=== PATIENT | male | born 1950 | race Caucasian/White ===

== ENCOUNTER 2016-04-14 | Outpatient (CLI) | END 2016-04-14 22:42 | disposition critical access hospital (66) | CPT/HCPCS: A0425; A0427 ==

== ENCOUNTER 2016-04-14 23:08 | Emergency (ER) | payer OTHER | END 2016-04-15 04:57 | disposition home or self-care (01) | DX: R07.9 Chest pain, unspecified (principal); I10 Essential (primary) hypertension; E78.00 Pure hypercholesterolemia, unspecified; G47.30 Sleep apnea, unspecified; K21.9 Gastro-esophageal reflux disease without esophagitis; M19.90 Unspecified osteoarthritis, unspecified site; Z86.73 Personal history of transient ischemic attack (TIA), and cerebral infarction without residual deficits; Z86.010 Personal history of colon polyps ==

== ENCOUNTER 2016-09-25 12:14 | Emergency (ER) | payer MEDICARE, OTHER ==
[2016-09-25 12:38] VITALS: BP 138/89
--- NOTE | 2016-09-25 13:04 | XRAY Preliminary Report ---
Exam: XR Ankle 3 View LT IMPRESSION: 1. No osseous abnormality. 2. Medial ankle soft tissue swelling. [facility] SITE ID: [id number]
--- NOTE | 2016-09-25 13:06 | XRAY Report ---
EXAM: LEFT ANKLE RADIOGRAPHY EXAM DATE: 09/25/2016 12:53 PM. CLINICAL HISTORY: Injury. Struck medial malleolus on shower frame. COMPARISON: None. TECHNIQUE: 3 views. FINDINGS: Bones: Normal. No fractures or bone lesions. Joints: Normal. No effusion. No subluxations. The ankle mortise is normally aligned. Soft Tissues: Medial soft tissue swelling. IMPRESSION: 1. No osseous abnormality. 2. Medial ankle soft tissue swelling. [facility] Referring Provider Line: [phone] SITE ID: [id number]
--- NOTE | 2016-09-25 13:42 | ED Physician Documentation ---
PD HPI LOWER EXT INJURY - Stated complaint Stated Complaint: LT ANKLE INJURY - Chief complaint Chief Complaint: Ext Problem - History obtained from History obtained from: Patient - History of Present Illness PD HPI LOW EXT INJURY LOCATION: Left, Ankle Type of injury: Blunt / blow Where injury occurred: Home Timing - onset: How many hours ago (3) Timing - details: Still present Worsened by: Moving, Palpating, Other (weightbearing) Similar symptoms before: Has not had sx before - Additional information Additional information: The patient is a 66-year-old male who presents with left ankle injury. He slipped while getting out of the shower, and banged his left ankle firmly against the side of the shower rim. He presents now with swelling of his ankle , with pain, especially with weightbearing. The incident occurred about 3 hours prior to arrival. He denies any other injuries. Tetanus status booster is over due. Review of Systems Constitutional: denies: Fever Nose: denies: Congestion Cardiac: denies: Chest pain / pressure Respiratory: denies: Dyspnea GI: denies: Nausea, Vomiting Skin: reports: Abrasion (s). denies: Rash Musculoskeletal: reports: Extremity pain (left ankle). denies: Neck pain, Back pain Neurologic: denies: Focal weakness, Numbness, Headache, Head injury PD PAST MEDICAL HISTORY - Past Medical History Past Medical History: Yes Cardiovascular: Hypertension, High cholesterol Respiratory: Sleep apnea, CPAP use, Other Neuro: CVA Endocrine/Autoimmune: None GI: GERD, Colon polyps : Retention HEENT: None Psych: None Musculoskeletal: Osteoarthritis Derm: Other - Past Surgical History Past Surgical History: Yes General: Cholecystectomy, Appendectomy, Colonoscopy, Other HEENT: Tonsil/Adenoidectomy - Present Medications Home Medications: Ambulatory Orders Medication Instructions Recorded Confirmed Clopidogrel [Plavix] 75 mg PO ONCE 07/23/13 04/14/16 Lisinopril [Zestril] 40 mg PO DAILY 07/23/13 04/14/16 Simvastatin 20 mg PO QPM 07/23/13 04/14/16 Ascorbic Acid [Vitamin C] 1,000 mg PO DAILY 07/26/14 04/14/16 Carvedilol 6.25 mg PO BID 07/26/14 04/14/16 Cholecalciferol (Vitamin D3) 2,000 unit PO DAILY 07/26/14 04/14/16 [Vitamin D] HYDROcod/ACETAM 5/325 [Vicodin 1 each PO ONCE PRN 07/31/14 04/14/16 5/325] Hydrochlorothiazide 25 mg PO DAILY 04/14/16 04/14/16 oxyCODONE/ACET 5/325 [Percocet 5 1 - 2 tab PO Q4-6H PRN #20 tablet 09/25/16 mg/325 mg] - Allergies Allergies/Adverse Reactions: Allergies Allergy/AdvReac Type Severity Reaction Status Date / Time codeine Allergy Severe vomiting Verified 09/25/16 13:13 morphine Allergy Severe anaphylaxis Verified 09/25/16 13:13 - Social History Does the pt smoke?: No Smoking Status: Never smoker Does the pt drink ETOH?: Yes ETOH Use: Beer, Liquor Does the pt have substance abuse?: No - Immunizations Immunizations are current?: Yes - POLST Patient has POLST: No POLST Status: Full Code PD ED PE NORMAL - Vitals Vital signs reviewed: Yes (borderline hypertension initially) - General General: Alert and oriented X 3, Well developed/nourished - HEENT HEENT: Atraumatic - Neck Neck: No bony TTP - Respiratory Respiratory: No respiratory distress - Back Back: No spinal TTP - Derm Derm: No rash - Extremities Extremities: No edema, No calf tenderness / cord, Other (There is swelling over the medial malleolus of the left ankle, with associated superficial 0.5 cm laceration, that has well apposed wound edges. There is no tenderness to palpation at the posterior aspect of the medial malleolus, the lateral malleolus , the fifth metatarsal base, or the proximal fibula. Distal neurovascular is intact.) - Neuro Neuro: Alert and oriented X 3, No motor deficit, No sensory deficit, Normal speech Results - Vitals Vitals: Oxygen O2 Source Room air - Rads (name of study) Left ankle Radiology: Prelim report reviewed, EMP read contemporaneously, See rad report ( No osseous abnormality. Medial ankle soft tissue swelling.) PD MEDICAL DECISION MAKING - ED course Complexity details: reviewed results, re-evaluated patient, considered differential, d/w patient, d/w family ED course: The patient's presentation is significant for contusion to the left ankle, with left ankle sprain, and superficial laceration that did not warrant suturing. X- ray of the left ankle reveals soft tissue swelling, without bony abnormality. Treatment in the emergency department included cleaning of the wound and application of antibiotic and wound dressing. Tetanus booster was administered. A 4 inch compression wrap was applied, and crutches were dispensed. I discussed with the patient and his the expected course of healing, symptomatic treatment and outpatient follow-up, as well as potentially worrisome signs or symptoms that should prompt reevaluation in the emergency department. He is being discharged with a prescription for Percocet, 15 tablets. Departure - Departure Disposition: 01 Home, Self Care Clinical Impression: Right ankle sprain Qualifiers: Encounter type: initial encounter Involved ligament of ankle: unspecified ligament Qualified Code(s): S93.401A - Sprain of unspecified ligament of right ankle, initial encounter Condition: Stable Instructions: ED Sprain Ankle W X Ray Prescriptions: oxyCODONE/ACET 5/325 [Percocet 5 mg/325 mg] 1 - 2 tab PO Q4-6H PRN #20 tablet PRN Reason: Pain Comments: Keep your left leg elevated as much the time as possible. Apply icepack intermittently for the next 3 days. Let pain be your guide to activity level. Follow up with primary physician, or return to the emergency department, if you develop any sign of infection, or otherwise worsening symptoms. Discharge Date/Time: 09/25/16 14:17
[2016-09-25] MEDS ORDERED: TETANUS/DIPHTHERIA/PERTUSSIS 0.5 ML SYRINGE IM ONE (13:47)
[2016-09-25] MEDS: TETANUS/DIPHTHERIA/PERTUSSIS 0.5 ML SYRINGE IM ONE (13:51)
== END 2016-09-25 14:17 | disposition home or self-care (01) ==
LOC: ED 12:14
DX: S93.402A Sprain of unspecified ligament of left ankle, initial encounter (principal); W18.2XXA Fall in (into) shower or empty bathtub, initial encounter; Y93.E1 Activity, personal bathing and showering; Y92.012 Bathroom of single-family (private) house as the place of occurrence of the external cause; Z23 Encounter for immunization; I10 Essential (primary) hypertension; E78.00 Pure hypercholesterolemia, unspecified; G47.30 Sleep apnea, unspecified; Z86.73 Personal history of transient ischemic attack (TIA), and cerebral infarction without residual deficits; Z86.010 Personal history of colon polyps; K21.9 Gastro-esophageal reflux disease without esophagitis; M19.90 Unspecified osteoarthritis, unspecified site
CPT/HCPCS: 90471; 99283

== ENCOUNTER 2016-12-24 08:23 | Outpatient (CLI) | payer MEDICARE, OTHER ==
[2016-12-24 11:43] LABS: BUN - BLOOD UREA NITROGEN 12 mg/dL (6-20); CALCIUM 9.3 mg/dL (8.5-10.3); CARBON DIOXIDE - CO2 31 mmol/L (21-32); CHLORIDE 105 mmol/L (101-111); CHOLESTEROL 92 mg/dL; CREATININE 0.9 mg/dL (0.6-1.2); GFR - MDRD 84 (>89); GLUCOSE 111 mg/dL (70-100); HDL CHOLESTEROL 47 mg/dL; POTASSIUM 3.7 mmol/L (3.5-5.0); SODIUM 141 mmol/L (135-145)
[2016-12-24 13:05] LABS: LDL/HDL RATIO 0.6 (<3.6); TRIGLYCERIDES 96 mg/dL; VLDL CHOLESTEROL 19 mg/dL
== END 2016-12-24 08:24 | disposition home or self-care (01) ==
LOC: LAB.F 08:23
PROVIDERS: ATTEND Internal Medicine
DX: L98.9 Disorder of the skin and subcutaneous tissue, unspecified (principal); E78.5 Hyperlipidemia, unspecified; I10 Essential (primary) hypertension; G45.9 Transient cerebral ischemic attack, unspecified
CPT/HCPCS: 36415; 80048; 80061

== ENCOUNTER 2017-01-04 07:32 | Outpatient (CLI) | payer MEDICARE, OTHER ==
--- NOTE | 2017-01-04 09:36 | Ultrasound Report ---
AORTA SCREEN: 01/04/2017 CLINICAL INDICATION: Smoking history. TECHNIQUE: Real-time sonographic imaging was performed by the label press operator through the aorta. Multiple sales representative trainee static images were saved for review. FINDINGS: The proximal abdominal aorta is normal in caliber, measuring 2.9 cm. There is minimal aneurysmal dilatation of the mid abdominal aorta, measuring up to 3.0 cm. The distal abdominal aorta is normal in caliber, measuring 2 cm. The iliacs are normal in caliber. No free fluid is present. IMPRESSION: MINIMAL ANEURYSMAL DILATATION OF THE MID ABDOMINAL AORTA, MEASURING 3.0 CM IN MAXIMAL DIAMETER. JOB #: [id number] EXT JOB #: [id number] MARY
== END 2017-01-04 07:33 | disposition home or self-care (01) ==
LOC: DI 07:32
PROVIDERS: ATTEND Internal Medicine
DX: Z13.6 Encounter for screening for cardiovascular disorders (principal); I71.4 Abdominal aortic aneurysm, without rupture; Z87.891 Personal history of nicotine dependence
CPT/HCPCS: 76706

== ENCOUNTER 2017-02-01 11:03 | Outpatient (CLI) | payer MEDICARE, OTHER | END 2017-02-01 11:04 | disposition home or self-care (01) | LOC: SC 11:03 | PROVIDERS: ATTEND Internal Medicine Pulmonary Disease | DX: G47.33 Obstructive sleep apnea (adult) (pediatric) (principal) | CPT/HCPCS: 99203; G0463; 99212 ==

== ENCOUNTER 2017-05-31 13:03 | Outpatient (CLI) | payer MEDICARE, OTHER | END 2017-05-31 13:04 | disposition home or self-care (01) | LOC: SC 13:03 | PROVIDERS: ATTEND Internal Medicine Pulmonary Disease | DX: G47.33 Obstructive sleep apnea (adult) (pediatric) (principal) | CPT/HCPCS: 99213; G0463; 99212 ==

== ENCOUNTER 2017-06-28 09:58 | Outpatient (CLI) | payer MEDICARE, OTHER | END 2017-06-28 09:59 | disposition home or self-care (01) | LOC: SC 09:58 | PROVIDERS: ATTEND Internal Medicine Pulmonary Disease | DX: G47.33 Obstructive sleep apnea (adult) (pediatric) (principal) | CPT/HCPCS: 99213; G0463; 99212 ==

== ENCOUNTER 2017-07-12 09:33 | Outpatient (CLI) | payer MEDICARE, OTHER | END 2017-07-12 09:34 | disposition short-term general hospital (02) | LOC: EMS 09:33 | PROVIDERS: ATTEND Surgery | DX: R07.9 Chest pain, unspecified (principal) | CPT/HCPCS: A0170; A0425; A0429 ==

== ENCOUNTER 2018-01-14 07:46 | Outpatient (CLI) | payer MEDICARE, OTHER ==
[2018-01-14 18:12] LABS: BUN - BLOOD UREA NITROGEN 17 mg/dL (6-20); CALCIUM 9.1 mg/dL (8.5-10.3); CARBON DIOXIDE - CO2 29 mmol/L (21-32); CHLORIDE 100 mmol/L (101-111); CHOL/HDL RATIO 2.6 (<5.0); CHOLESTEROL 122 mg/dL; CREATININE 0.8 mg/dL (0.6-1.2); GFR - MDRD 96 (>89); GLUCOSE 95 mg/dL (70-100); HDL CHOLESTEROL 47 mg/dL; LDL CHOLESTEROL,CALCULATED 55 mg/dL; LDL/HDL RATIO 1.2 (<3.6); SODIUM 139 mmol/L (135-145); VLDL CHOLESTEROL 20 mg/dL
[2018-01-15 14:01] LABS: HEPATITIS C ANTIBODY NON-REACTIVE (NON-REACTIVE)
== END 2018-01-14 07:47 | disposition home or self-care (01) ==
LOC: LAB.F 07:46
PROVIDERS: ATTEND Internal Medicine
DX: Z00.00 Encounter for general adult medical examination without abnormal findings (principal); I71.4 Abdominal aortic aneurysm, without rupture; I10 Essential (primary) hypertension; L98.9 Disorder of the skin and subcutaneous tissue, unspecified; E78.5 Hyperlipidemia, unspecified; R73.01 Impaired fasting glucose; G25.2 Other specified forms of tremor; G47.33 Obstructive sleep apnea (adult) (pediatric); M25.519 Pain in unspecified shoulder; G45.9 Transient cerebral ischemic attack, unspecified; Z11.9 Encounter for screening for infectious and parasitic diseases, unspecified
CPT/HCPCS: 36415; 80048; 80061; 83721; 86803

== ENCOUNTER 2018-02-16 13:04 | Outpatient (CLI) | payer MEDICARE, OTHER | END 2018-02-16 13:05 | disposition home or self-care (01) | LOC: SC 13:04 | PROVIDERS: ATTEND Nurse Practitioner Family | DX: G47.33 Obstructive sleep apnea (adult) (pediatric) (principal) | CPT/HCPCS: 99214; G0463; 99212 ==

== ENCOUNTER 2018-04-20 14:56 | Outpatient (CLI) | payer MEDICARE, OTHER | END 2018-04-20 14:57 | disposition home or self-care (01) | LOC: SC 14:56 | PROVIDERS: ATTEND Nurse Practitioner Family | DX: G47.33 Obstructive sleep apnea (adult) (pediatric) (principal) | CPT/HCPCS: 99214; G0463; 99212 ==

== ENCOUNTER 2018-07-05 08:00 | Outpatient (CLI) | payer MEDICARE, OTHER ==
[2018-07-05 18:09] LABS: CHOL/HDL RATIO 2.1 (<5.0); CHOLESTEROL 60 mg/dL; HDL CHOLESTEROL 29 mg/dL; LDL CHOLESTEROL,CALCULATED 13 mg/dL; LDL/HDL RATIO 0.4 (<3.6); VLDL CHOLESTEROL 18 mg/dL
== END 2018-07-05 23:59 | disposition home or self-care (01) ==
LOC: LAB.F 08:00
PROVIDERS: ATTEND Internal Medicine
DX: I71.4 Abdominal aortic aneurysm, without rupture (principal); L98.9 Disorder of the skin and subcutaneous tissue, unspecified; E78.5 Hyperlipidemia, unspecified; I10 Essential (primary) hypertension; R73.01 Impaired fasting glucose; G25.2 Other specified forms of tremor; G47.33 Obstructive sleep apnea (adult) (pediatric); G45.9 Transient cerebral ischemic attack, unspecified
CPT/HCPCS: 36415; 80061; 83721

== ENCOUNTER 2018-11-14 10:27 | Outpatient (CLI) | payer MEDICARE, OTHER ==
[2018-11-14 11:38] VITALS: BP 130/80
--- NOTE | 2018-11-14 11:38 | SLEEP CARE CONSULTATION ---
Information from patient questionnaire entered by Jasmine Weber. I have reviewed and concur with the information entered by Jasmine Weber. This document represents the service I personally performed and the decisions made by me, Dang Brooks RN, MSN, MODEL DRESSER. - History of Present Illness HPI: DIONICIO BARRY was diagnosed to have severe, AHI 72.8, obstructive sleep apnea-hypopnea syndrome and returned today for CPAP therapy six month follow-up. At last visit, his autoCPAP range had been increased to correct slight elevation in residual AHI. However, it had to be reduced in August due to symptoms of waking bloated every night after losing 15 pounds intentionally. Thus the pressure was reduced to [id number] with resolution of symptoms. He has since regained most of his weight and now is not as rested as before with CPAP use. He also reports that the humidifier is using a lot more water. Changes in medical history since last seen is new injury to his left shoulder and has appointment made with PCP, he wonders if due to home improvement and lifting heavy items such sheeting for exterior of house. His knees have also been more painful which has been intermittent. Equipment obtained from: [employer] Mask style: Full face Mask brand: Resmed Backup mask available: Yes Last cushion change: 4-5 days ago. He changes it monthly. - Compliance Data Reviewed with Patient Average duration of nightly device use: 7 Compliance rate % (4+hrs/night over past 30 nights): 98.9 Current pressure setting (cmH2O): 12-16 Humidity settin Heated hose settin - Subjective Missed days of use due to: reports: other (one day with no CPAP , patient does not recall not using his CPAP.) Patient concerns: denies: aerophagia, mask discomfort, air blowing in eyes, mask leak noise, condensation in mask/hose, nasal congestion, dry mouth, nose, throat, epistaxis Observed to snore while using device: No Current pressure setting perceived as: comfortable On therapy, patient: reports: sleeping better, being more awake and alert during the day ( but not as much as at last visit.), more rested overall, other. denies: awakening more refreshed (He is not waking refreshed for a while. Is not sure if since regained weight.), drowsiness while driving Initial [place] Sleepiness Scale score: 10 Current [place] Sleepiness Scale score: 4 - Review of Systems Review of systems same as previous: Yes Cardiovascular: reports: high blood pressure, leg or foot swelling (has noted some swelling of ankles at sock line about a 1/2 inch that disappears while sleeping.). denies: palpitations, chest pain, irregular heart rate or pulse, have to sleep sitting up, other Respiratory: denies: shortness of breath, wheeze, sputum production, chronic cough, other Gastrointestinal: denies: heartburn, difficulty swallowing, nausea, vomitting, diarrhea, abdominal pain, other Urinary: denies: incontinence, frequency, urgency, impotence, other Neurological: reports: gait or balance problems. denies: headaches, seizure, head trauma, disorientation, speech dysfunction, fainting or unconsciousness, other Psychiatric: denies: Attention Deficit Hyperactivity, anxiety, depression, mood disorder, claustrophobia, other Ear/Nose/Throat: reports: tonsillectomy. denies: nasal congestion, sinus problems, nose bleeds, dry mouth/throat, hoarseness, injury to nose, wisdom teeth removed, other Endocrine: reports: sluggishness. denies: thyroid disease, history of goiter, too hot or cold, excessive thirst, increased appetite, increased urination, unexplained weakness, other Musculoskeletal: reports: joint pain, back pain, other ( left shoulder intermittent pain with raising arm.) Immunologic: reports: rash - Allergies/Medications Atorvastatin 80 mg tab daily in the evening Amilodipine 5mg tab one daily Clopidogrel 75mg tab one daily Hydrochlorothiazide 25mg one daily Lisinopril 40mg tab one daily Chitra-C 1000mg tab one daily Vitamin B 12 1 tablet daily No known drug allergies: Yes (codiene = nausea and morphine = anaphalatic response) Allergies and home medications reviewed: Yes - Physical Examination Blood Pressure: 130/80 Cuff size: long Heart Rate: 52 O2 Saturation: 98 Height: 5 ft 11 in Weight (kg): 98.067 kg Body Mass Index: 30.1 BMI Classification: Class 1 - Impression 1. Obstructive Sleep Apnea-Hypopnea Syndrome, very severe, with good treatment compliance. However, his residual AHI is elevated since pressure reduction and regaining lost weight . On CPAP therapy, there is improved sleep quality and continues to feel more rested overall but not as significant as before and reports residual fatigue. To reduce residual AHI as well as keep air pressure pressure comfortable, I will change his autoCPAP pressure to [id number]. He was advised of symptoms to report to adjust further. If aerophagia, he is to contact me right away to reduce pressure setting. To reduce moisture loss from reservoir during the summer, he was instructed to lower heated hose and rationale discussed why to reduce or increase setting as well as humidity. He is also advised to empty reservoir daily and let dry out instead of using water and filling every 2 days with rationale discussed. For his ankle edema, with discussion, it seems this occurred with changing to amlodipine, he is instructed to contact his PCP for further evaluation as well as for his intermittent left shoulder pain and knee pain as planned. For his medication allergies, he is to consider a medic alert ID and at least information in his wallet behind drivers license with rationale discussed for use in an emergency. Patient's apnea alexi rity and rationale for treatment to reduce apnea, improve sleep quality and reduce cardiovascular and cerebrovascular events was reviewed. I also reviewed the benefit of consistent device use of CPAP for hypertension. - Plan Plan: Change nasal auto CPAP pressure to 14-17 cm H2O. - done in office Adjust ramp to 7cmH20. Notify me if snoring with the mask or feeling that the pressure is too much or too little. Attempt to lose weight. Adjust heated hose / humidity Empty reservoir daily Follow up with PCP as planned for shoulder/knee pain and ankle edema since start of amlodipine Consider Medic alert for allergies Return for follow-up in 2 months, or sooner if concerns arise. I spent 100% of this 45 minute visit face to face with the patient with greater than 50% of this was spent time counseling the patient and coordination of care.
== END 2018-11-14 10:28 | disposition home or self-care (01) ==
LOC: SC 10:27
PROVIDERS: ATTEND Nurse Practitioner Family
DX: G47.33 Obstructive sleep apnea (adult) (pediatric) (principal)
CPT/HCPCS: 99215; G0463; 99212

== ENCOUNTER 2019-01-16 10:18 | Outpatient (CLI) | payer MEDICARE, OTHER ==
--- NOTE | 2019-01-16 11:11 | SLEEP CARE CONSULTATION ---
Information from patient questionnaire entered by Jasmine Weber. I have reviewed and concur with the information entered by Jasmine Weber. This document represents the service I personally performed and the decisions made by me, Dang Brooks, RN, MSN, TIMBER FALLER. History of Present Illness Previous diagnosis: Severe, Obstructive Sleep Apnea-Hypopnea Syndrome AHI: 72.8 Reason for CPAP/BiPAP follow up: other (2 MONTH PRESSURE CHANGE) Equipment type: CPAP Equipment obtained from: [employer] Mask style: Full face Backup mask available: Yes Last cushion change: 3 days ago Prior sleep studies: Yes Year and Where: [facility] additional information: The pressure change has been comfortable. Only one night of abdominal bloating from nasal congestion and gulping air. The pressure has reduced sleepiness symptoms. CPAP Compliance Data - Data Reviewed with Patient Average duration of nightly device use: 7h 9m Compliance rate %: 100 Current pressure setting (cmH2O): 14-17 Humidity settin Heated hose settin Average residual AHI: 5 Central apnea: 0.9 Obstructive apnea: 3.1 Hypopnea: 1.0 Subjective Patient concerns: reports: aerophagia (one night only when congested from recent cold. ), dry mouth, nose, throat (1 a week ). denies: mask discomfort, air blowing in eyes, mask leak noise, condensation in mask/hose, nasal congestion, epistaxis Observed to snore while using device: No Current pressure setting perceived as: comfortable On therapy, patient: reports: sleeping better, awakening more refreshed, being more awake and alert during the day, more rested overall. denies: drowsiness while driving Initial [place] Sleepiness Scale score: 14 Current [place] Sleepiness Scale score: 4 Allergies and Home Medications Known drug allergies: Yes (codiene , morphine) Home medication list reviewed: Yes Allergy and home medication list: Medication Name (generic/name brand) Strength & Dosage Atorastatin 80 mg tab daily in the evening Amolodipine one daily Clopidogrel 75mg tab one daily Hydrochlorothiazide 25mg one daily Lisinopril 40mg tab one daily Chitra-C 1000mg tab one daily Vitamin B 12 one daily * patient to put meds and doses in wallet by ID Allergies: Morphine, Codeine Review of Systems Review of systems same as previous: Yes Physical Exam Blood Pressure: 120/60 Cuff size: long Heart Rate: 60 O2 Saturation: 98 Height: 5 ft 10.75 in (measured today) Weight: 216 lb Body Mass Index: 30.3 BMI Classification: Obesity Class 1 Impression and Plan 1. Obstructive Sleep Apnea-Hypopnea Syndrome, severe, with good treatment comp liance and good apnea control. On CPAP therapy, the patient has better sleep quality and is more rested overall. The residual AHI reduced from 7.6 to 5 and sleepiness symptoms reduced with pressure change. Since he is going to try to lose weight again, I will keep it at this autoCPAP pressure. Weight loss can reduce pressure requirements. I again reviewed symptoms to report for report. Current weight shows 30 BMI and class 1 obesity which can increased overall health risks as well as his apnea severity.Thus he is encouraged to continue with plan. As noted above, his weight will also affect his apnea severity and CPAP pressure. For oral dryness, I again reviewed how to increase the humidity on a sample device and gave written instructions. He did 2 return demonstrations with comfort the second time voiced. The heated hose only needs to be adjusted up if condensation. Patient's apnea severity and rationale for treatment to reduce apnea, improve sleep quality and reduce cardiovascular and cerebrovascular events was reviewed. I also reviewed the benefit of consistent device use of CPAP for hypertension, TIA history, and gerd. His gerd symptoms have reduced. Continue CPAP pressure at 14-17 cmH2O * Adjust humidity and heated hose. * Notify me if snoring with mask or feeling that the pressure is too much or too little * Attempt to lose weight * Return for follow up in 1 year , or sooner if concerns arise I spent 100% of this 30 minute visit face to face with the patient with greater than 50% of this was spent time counseling the patient and coordination of care.
[2019-01-16 11:12] VITALS: BP 120/60
== END 2019-01-16 10:19 | disposition home or self-care (01) ==
LOC: SC 10:18
PROVIDERS: ATTEND Nurse Practitioner Family
DX: G47.33 Obstructive sleep apnea (adult) (pediatric) (principal); E66.9 Obesity, unspecified; Z68.30 Body mass index [BMI] 30.0-30.9, adult
CPT/HCPCS: 99214; G0463; 99212

== ENCOUNTER 2019-05-18 09:30 | Outpatient (CLI) | payer MEDICARE, OTHER ==
[2019-05-18 17:09] LABS: CHOL/HDL RATIO 3.7 (<5.0); CHOLESTEROL 174 mg/dL; HDL CHOLESTEROL 47 mg/dL; LDL CHOLESTEROL,CALCULATED 95 mg/dL; VLDL CHOLESTEROL 32 mg/dL
== END 2019-05-18 09:31 | disposition home or self-care (01) ==
LOC: LAB.S 09:30
PROVIDERS: ATTEND Internal Medicine
DX: E78.00 Pure hypercholesterolemia, unspecified (principal)
CPT/HCPCS: 36415; 80061; 83721

== ENCOUNTER 2020-06-04 21:07 | Emergency (ER) | payer MEDICARE, OTHER ==
[2020-06-04 22:18] LABS: BILIRUBIN,URINE NEGATIVE (NEGATIVE); GLUCOSE, URINE (UA) NEGATIVE (NEGATIVE); KETONES,URINE (UA) NEGATIVE (NEGATIVE); LEUKOCYTE ESTERASE, URINE NEGATIVE (NEGATIVE); NITRITE,URINE NEGATIVE (NEGATIVE); OCCULT BLOOD,URINE MODERATE (NEGATIVE); PROTEIN,URINE NEGATIVE (NEGATIVE); UROBILINOGEN,URINE 0.2 (NORMAL) E.U./dL (NORMAL)
[2020-06-04 22:20] LABS: CLARITY,URINE CLEAR (CLEAR)
[2020-06-04 22:25] LABS: BACTERIA,URINE None Seen /HPF (None Seen); SQUAMOUS EPITHELIAL CELL,UR NONE SEEN (<= Few)
--- NOTE | 2020-06-04 23:29 | ED Physician Documentation ---
PD HPI MALE - Stated complaint Stated Complaint: MALE - Chief complaint Chief Complaint: General - History obtained from History obtained from: Patient - History of Present Illness Timing - onset: How many days ago (4-5) Timing - details: Gradual onset Associated symptoms: Dysuria PD HPI MALE CONTRIB FACTORS: Sexually active (monogomous with spouse) Similar symptoms before: Has not had sx before - Additional information Additional information: c/o rash on penis x 4-5 days. since earlier this afternoon, he has had difficulty with urination; he can urinate but he feels he has to bear down to do so Review of Systems Constitutional: denies: Fever : reports: Dysuria. denies: Discharge Skin: reports: Rash PD PAST MEDICAL HISTORY - Past Medical History Cardiovascular: Hypertension, High cholesterol Respiratory: Sleep apnea, CPAP use, Other Endocrine/Autoimmune: None GI: GERD, Colon polyps : Retention HEENT: None Psych: None Musculoskeletal: Osteoarthritis Derm: Other - Past Surgical History Past Surgical History: Yes General: Cholecystectomy, Appendectomy, Colonoscopy, Other HEENT: Tonsil/Adenoidectomy - Present Medications Home Medications: Ambulatory Orders Medication Instructions Recorded Confirmed Clopidogrel [Plavix] 75 mg PO ONCE 07/23/13 04/14/16 lisinopriL [Zestril] 40 mg PO DAILY 07/23/13 04/14/16 Ascorbic Acid [Vitamin C] 1,000 mg PO DAILY 07/26/14 06/04/20 Cholecalciferol (Vitamin D3) 2,000 unit PO DAILY 07/26/14 04/14/16 [Vitamin D] hydroCHLOROthiazide 25 mg PO DAILY 04/14/16 04/14/16 [Hydrochlorothiazide] Clotrimazole 1% Cream [Lotrimin 1% 1 film TOP BID #1 06/04/20 Cream] Mupirocin Calcium [Mupirocin] 1 film TP TID #1 06/04/20 amLODIPine [Norvasc] 5 mg PO DAILY 06/04/20 06/04/20 - Allergies Allergies/Adverse Reactions: Allergies Allergy/AdvReac Type Severity Reaction Status Date / Time codeine Allergy Severe vomiting Verified 06/04/20 21:10 morphine Allergy Severe anaphylaxis Verified 06/04/20 21:10 - Social History Does the pt smoke?: No Smoking Status: Never smoker Does the pt drink ETOH?: Yes Does the pt have substance abuse?: No - Immunizations Immunizations are current?: Yes - POLST Patient has POLST: No POLST Status: Full Code PD ED PE NORMAL - Vitals Vital signs reviewed: Yes - General General: Alert and oriented X 3, No acute distress, Well developed/nourished - Abdomen Abdomen: Soft, Non tender PD ED PE EXPANDED - Male Male : Circumcised, Other (poorly marginated erythema, mild induration and purulence on glans and prepuce) Results - Vitals Vitals: Vital Signs - 24 hr 06/04/20 06/04/20 21:10 23:55 Temperature 36.6 C 36.5 C Heart Rate 73 61 Respiratory 16 16 Rate Blood Pressure 143/71 H 129/74 O2 Saturation 98 98 Oxygen O2 Source Room air - Labs Labs: Laboratory Tests 06/04/20 22:09 Urine Color YELLOW Urine Clarity CLEAR Urine pH 6.0 Ur Specific [place] 1.015 Urine Protein NEGATIVE Urine Glucose (UA) NEGATIVE Urine Ketones NEGATIVE Urine Occult Blood MODERATE H Urine Nitrite NEGATIVE Urine Bilirubin NEGATIVE Urine Urobilinogen 0.2 (NORMAL) Ur Leukocyte Esterase NEGATIVE Urine RBC 11-25 H Urine WBC 0-3 Ur Squamous Epith Cells NONE SEEN Urine Bacteria None Seen Ur Microscopic Review INDICATED Urine Culture Comments NOT INDICATED PD MEDICAL DECISION MAKING - ED course Complexity details: considered differential, d/w patient Departure - Departure Disposition: 01 Home, Self Care Clinical Impression: Balanitis Condition: Good Instructions: ED Balanitis Prescriptions: Clotrimazole 1% Cream [Lotrimin 1% Cream] 1 film TOP BID #1 Mupirocin Calcium [Mupirocin] 1 film TP TID #1 Comments: Follow up with the urologist as scheduled this week Discharge Date/Time: 06/05/20 00:02
[2020-06-04] MEDS ORDERED: MUPIROCIN 2% OINT 1 GM TOP STA (23:50)
[2020-06-04] MEDS ORDERED: NYSTATIN CREAM 15 GM TUBE TOP STA (23:50)
[2020-06-04 23:55] VITALS: BP 129/74
== END 2020-06-05 00:02 | disposition home or self-care (01) ==
LOC: ED 21:07
DX: N48.1 Balanitis (principal); I10 Essential (primary) hypertension
CPT/HCPCS: 81001; 99283; A9270; 81003; 87086

== ENCOUNTER 2020-09-18 18:54 | Outpatient (CLI) | payer MEDICARE, OTHER | END 2020-09-18 18:55 | disposition short-term general hospital (02) | LOC: EMS 18:54 | DX: R07.9 Chest pain, unspecified (principal); R06.02 Shortness of breath | CPT/HCPCS: A0425; A0427 ==

== ENCOUNTER 2021-02-04 13:55 | Outpatient (CLI) | payer MEDICARE, OTHER ==
--- NOTE | 2021-02-04 14:40 | SLEEP CARE CONSULTATION ---
Information from patient questionnaire entered by Jasmine Weber. I have reviewed and concur with the information entered by Jasmine Weber. This document represents the service I personally performed and the decisions made by me, Jaycee Chambers ARNP. History of Present Illness Service Date and Time: 02/04/2021 1355 Previous diagnosis: Very Severe, Obstructive Sleep Apnea-Hypopnea Syndrome AHI: 72.8 Reason for follow up: annual Equipment type: CPAP Equipment obtained from: [facility] (getting supplies as needed) Mask style: Full face Backup mask available: Yes (old mask) Last cushion change: 3.5 weeks Prior sleep studies: Yes Year and Where: 2011 [facility] Type of Sleep Study: Polysomnography HPI additional information: DIONICIO BARRY was diagnosed to have very severe, AHI 72.8, obstructive sleep apnea-hypopnea syndrome and returned today for CPAP therapy annual follow-up. Sleep Study - Results Prior sleep studies: Yes Year and Where: 2011 [facility] CPAP Compliance Data - Data Reviewed with Patient Average duration of nightly device use: 7 hours 7 minutes Compliance rate %: 99.4 Current pressure setting (cmH2O): 10-12 Humidity settin Average residual AHI: 7.5 Average large leak: 18 minutes 1 second Subjective Missed days of use due to: reports: other (Power outage) Patient concerns: denies: aerophagia, mask discomfort, air blowing in eyes, mask leak noise, condensation in mask/hose, nasal congestion, dry mouth, nose, throat, epistaxis, other Observed to snore while using device: No Current pressure setting perceived as: comfortable On therapy, patient: reports: sleeping better, awakening more refreshed, being more awake and alert during the day, more rested overall. denies: drowsiness while driving Initial [place] Sleepiness Scale score: 14 Current [place] Sleepiness Scale score: 5 Allergies and Home Medications Home medication list reviewed: Yes (updated) Allergy and home medication list: Vitamin Chitra C Clopidogrel HCTZ Lisinopril Amlodipine Besylate Super B Complex Vit D3 Rosuvastatin Famotidine Review of Systems Review of systems same as previous: No (Acid reflux, colonoscopy/endoscopy last month, started meds) Physical Exam Blood Pressure: 115/70 Heart Rate: 60 O2 Saturation: 97 Height: 5 ft 11 in Weight: 217 lb 12.8 oz Body Mass Index: 30.4 BMI Classification: Obese Impression and Plan 1. Obstructive Sleep Apnea-Hypopnea Syndrome, very severe, with good treatment compliance and fair apnea control with elevation of residual AHI. On CPAP therapy, the patient has better sleep quality and is more rested overall. The patients pressure will be changed to autoCPAP 11-13 cmH20 for elevation of residual AHI. Patient advised to contact me if pressure change is uncomfortable so that it can be adjusted. Goals for apnea control discussed. Patient has already registered their device for the recall. Patient denies any black particles seen in machine or hoses, any unusual odors coming from device. Patient has not experienced any physical symptoms such as upper airway irritation, headache, skin or eye irritation, asthma, nausea/vomiting, difficulty breathing or chest pain. If patient is not able to sleep due to waking up choking, gasping for air or other respiratory distress that they may decide to continue using it until it is either replaced or repaired. If patient has an older device that is not on the recall they may switch to using that in the meantime. Set up his full device minute for couple of hours but had a distinct odor in it that he did not feel he could tolerate. He states he will continue using his device until it is replaced. Patient was encouraged to lose weight for their overall health and to reduce apneas. Patient states he was having hip pain so was unable to take his daily walk. He has gained weight sin ce he has not been able to walk. He started taking vitamin D and his hip pain is much better. I encouraged him to start walking again as this will help him to lose weight. He voiced understanding. Patient voiced understanding and agreement with plan. Patient's apnea severity and rationale for treatment to reduce apnea, improve sleep quality and reduce cardiovascular and cerebrovascular events was reviewed. I also reviewed the benefit of consistent device use of CPAP for hypertension, cerebrovascular disease and gastric reflux. * Change auto CPAP pressure to 11-13 cmH2O * Notify me if snoring with mask or feeling that the pressure is too much or too little * Attempt to lose weight * Call this office if any problems using CPAP * Return for follow up in 1 year, or sooner if concerns arise Counseling Topics: Spare mask, Weight loss health impact, Activity level Visit Type: In Office Time Spent with Patient (minutes): 20 Provider Statement: I spent 100% of the Face to Face Visit with the patient with greater than 50% spent counseling the patient and coordination of care.
[2021-02-04 14:41] VITALS: BP 115/70
== END 2021-02-04 13:56 | disposition home or self-care (01) ==
LOC: SC 13:55
PROVIDERS: ATTEND Nurse Practitioner Family
DX: G47.33 Obstructive sleep apnea (adult) (pediatric) (principal); E66.9 Obesity, unspecified; Z68.30 Body mass index [BMI] 30.0-30.9, adult
CPT/HCPCS: 99213; G0463; 99212

== ENCOUNTER 2021-08-06 08:00 | Outpatient (CLI) | payer MEDICARE, OTHER ==
--- NOTE | 2021-08-07 09:09 | XRAY Report ---
PROCEDURE: Knee 3 View LT INDICATIONS: LEFT KNEE SPRAIN TECHNIQUE: 3 views of the left knee(s) were acquired. COMPARISON: None. FINDINGS: Bones: No fractures or dislocations. Moderate tricompartmental osteoarthritis is seen more prominen t in medial femoral tibial compartment. No suspicious bony lesions. Soft tissues: Small to moderate suprapatellar joint effusion is seen. No suspicious soft tissue calci fications. IMPRESSION: Moderate tricompartmental osteoarthritis. No fracture or dislocation. Small to moderate joint effusion. Reviewed by: Gentry Mcgowan MD on 08/07/2021 9:08 AM PDT Approved by: Gentry Mcgowan MD on 08/07/2021 9:08 AM PDT Station ID: [id number]
== END 2021-08-06 23:59 | disposition home or self-care (01) ==
LOC: DI.S 08:00
PROVIDERS: ATTEND Emergency Medicine
DX: S83.422A Sprain of lateral collateral ligament of left knee, initial encounter (principal); M17.12 Unilateral primary osteoarthritis, left knee; M25.462 Effusion, left knee

== ENCOUNTER 2021-08-06 20:00 | Emergency (ER) | payer MEDICARE, OTHER ==
--- NOTE | 2021-08-06 21:21 | CT Report ---
PROCEDURE: HEAD WO INDICATIONS: fall, head injury TECHNIQUE: Noncontrast 4.5 mm thick angled axial sections acquired from the foramen magnum to the vertex. For r adiation dose reduction, the following was used: automated exposure control, adjustment of mA and/or kV according to patient size. COMPARISON: None. FINDINGS: Image quality: Excellent. CSF spaces: Basal cisterns are patent. No extra-axial fluid collections. Ventricles are normal in size and shape. Brain: No midline shift. No intracranial masses or hemorrhage. Olsen-white matter interface is norm al. Skull and face: Calvarium and visualized facial bones are intact, without suspicious lesions. Sinuses: Visualized sinuses and mastoids are clear. IMPRESSION: 1. No CT evidence of acute intracranial trauma. 2. No evidence of fracture. Reviewed by: Yani Kelley MD on 08/06/2021 9:19 PM PDT Approved by: Yani Kelley MD on 08/06/2021 9:19 PM PDT Station ID: [id number]
--- NOTE | 2021-08-06 21:42 | ED Physician Documentation ---
PD HPI HEAD INJURY - Stated complaint Stated Complaint: FALL,HIT HEAD - Chief complaint Chief Complaint: Trauma Hd/Nk - History obtained from History obtained from: Patient - History of Present Illness Mechanism of head injury: Fell - Additional information Additional information: Patient is a 70-year-old male with a history significant for CVA on Plavix presenting for evaluation after head injury at 4 PM. Patient was working on a ladder outside and was using a saw. He reports being in a funny position and lost his footing. He was able to drop with a saw and fell backwards. He did hit his head. He believes he was about 4 feet off the ground. He also believes he struck his left leg. He did not lose consciousness. He went to the walk-in clinic earlier and reports having an x-ray done of his left knee with no fracture being seen. He had an immobilizer placed. Due to the fact that he had struck his head and is on Plavix he was directed to the emergency department for evaluation. Patient reports a mild headache to the posterior head. Denies vision changes, dizziness, chest pain, difficulty breathing, abdominal pain, vomiting, focal weakness or numbness. Review of Systems Constitutional: denies: Fever Eyes: denies: Decreased vision, Photophobia Nose: denies: Congestion Cardiac: denies: Chest pain / pressure, Palpitations Respiratory: denies: Dyspnea GI: denies: Abdominal Pain, Vomiting Musculoskeletal: reports: Extremity pain. denies: Back pain Neurologic: reports: Headache, Head injury. denies: Syncope PD PAST MEDICAL HISTORY - Past Medical History Cardiovascular: Hypertension, High cholesterol Respiratory: Sleep apnea, CPAP use, Other Endocrine/Autoimmune: None GI: GERD, Colon polyps : Retention HEENT: None Psych: None Musculoskeletal: Osteoarthritis Derm: Other - Past Surgical History Past Surgical History: Yes General: Cholecystectomy, Appendectomy, Colonoscopy, Other HEENT: Tonsil/Adenoidectomy - Present Medications Home Medications: Ambulatory Orders Medication Instructions Recorded Confirmed Clopidogrel [Plavix] 75 mg PO ONCE 07/23/13 04/14/16 lisinopriL [Zestril] 40 mg PO DAILY 07/23/13 04/14/16 Ascorbic Acid [Vitamin C] 1,000 mg PO DAILY 07/26/14 06/04/20 Cholecalciferol (Vitamin D3) 2,000 unit PO DAILY 07/26/14 04/14/16 [Vitamin D] hydroCHLOROthiazide 25 mg PO DAILY 04/14/16 04/14/16 [Hydrochlorothiazide] Clotrimazole 1% Cream [Lotrimin 1% 1 film TOP BID #1 06/04/20 Cream] Mupirocin Calcium [Mupirocin] 1 film TP TID #1 06/04/20 amLODIPine [Norvasc] 5 mg PO DAILY 06/04/20 06/04/20 - Allergies Allergies/Adverse Reactions: Allergies Allergy/AdvReac Type Severity Reaction Status Date / Time codeine Allergy Severe vomiting Verified 08/06/21 20:13 morphine Allergy Severe anaphylaxis Verified 08/06/21 20:13 - Social History Does the pt smoke?: No Smoking Status: Never smoker Does the pt drink ETOH?: Yes Does the pt have substance abuse?: No - Immunizations Immunizations are current?: Yes - POLST Patient has POLST: No POLST Status: Full Code PD ED PE NORMAL - General General: Alert and oriented X 3, No acute distress, Well developed/nourished - HEENT HEENT: Atraumatic, PERRL, Moist mucous membranes - Neck Neck: Other (Mild midline C-spine tenderness, No step-offs no deformities). 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 Appears neurologically intact. Was evaluated at the walk-in clinic in [place] for left knee injury with x-ray performed. Unable to see outside x-ray. CT head and cervical spine obtained with no signs of injury.No injuries noted elsewhere on exam. Patient is overall well-appearing, sitting upright in bed and doing crossword puzzles. Patient denies any symptoms causing him to fall such as dizziness, chest pain or difficulty breathing.Patient was counseled on supportive care. He is aware of return precautions. He is aware of need for follow-up with his primary care doctor. Departure - Departure Disposition: 01 Home, Self Care Clinical Impression: Fall from ladder Qualifiers: Encounter type: initial encounter Qualified Code(s): W11.XXXA - Fall on and from ladder, initial encounter Head injury Qualifiers: Encounter type: initial encounter Qualified Code(s): S09.90XA - Unspecified injury of head, initial encounter Cervical strain, acute Qualifiers: Encounter type: initial encounter Qualified Code(s): S16.1XXA - Strain of muscle, fascia and tendon at neck level, initial encounter Condition: Stable Instructions: ED Head Injury Closed Comments: Vik you were evaluated today after falling from a ladder. You had a CT scan of your head and your cervical spine done which fortunately did not show a broken bone or any bleeding or other injuries. You may be sore for the next few days. Please use the lidocaine patches as needed as well as Tylenol for pain. Please also follow-up with your primary care doctor regarding the strain injury to your knee that you were previously evaluated for. If you have any new pains, worsening pain, dizziness, chest pain, trouble breathing or have any other concerns please return to the emergency department. Discharge Date/Time: 08/06/21 23:35
[2021-08-06] MEDS: LIDOCAINE PATCH 5% TOP STA (21:49)
--- NOTE | 2021-08-06 22:59 | CT Report ---
PROCEDURE: CERVICAL SPINE WO INDICATIONS: pain/fall TECHNIQUE: Noncontrast 3 mm thick sections acquired from the skull base to the T4 level. Sagittal and coronal r eformats were then constructed. For radiation dose reduction, the following was used: automated exp osure control, adjustment of mA and/or kV according to patient size. COMPARISON: None. FINDINGS: Image quality: Excellent. Bones: No fractures or dislocations. Moderate degenerative disc height loss at C6-7 with mild endpla te spurs. Mild disc height loss at the other levels. Visualized superior ribs are intact. Soft tissues: Prevertebral soft tissues are normal in thickness. No paravertebral hematomas. No ap ical pneumothoraces. IMPRESSION: 1. No CT evidence of acute cervical spine injury. Reviewed by: Yani Kelley MD on 08/06/2021 10:57 PM PDT Approved by: Yani Kelley MD on 08/06/2021 10:57 PM PDT Station ID: [id number]
[2021-08-06 23:35] VITALS: BP 144/84
== END 2021-08-06 23:35 | disposition home or self-care (01) ==
LOC: ED 20:00
DX: S09.90XA Unspecified injury of head, initial encounter (principal); S16.1XXA Strain of muscle, fascia and tendon at neck level, initial encounter; W11.XXXA Fall on and from ladder, initial encounter
CPT/HCPCS: 36415; 70450; 72125; 99282; 99284; A9270

== ENCOUNTER 2021-08-25 17:05 | Outpatient (CLI) | payer MEDICARE, OTHER | END 2021-08-25 17:06 | disposition EMS.NT | LOC: EMS 17:05 | DX: S01.01XA Laceration without foreign body of scalp, initial encounter (principal); W20.8XXA Other cause of strike by thrown, projected or falling object, initial encounter; Y93.H3 Activity, building and construction; Y92.008 Other place in unspecified non-institutional (private) residence as the place of occurrence of the external cause ==

== ENCOUNTER 2021-08-25 18:03 | Emergency (ER) | payer MEDICARE, OTHER ==
[2021-08-25] MEDS ORDERED: lidocaine 1% 20 ML MDV SUBQ ONE (18:42)
--- OUTSIDE RECORDS SUMMARY | 2021-08-25 18:43 | EXTERNAL MEDICAL SUMMARY RPT | Continuity of Care Document ---
:1950 Author Organization [facility] Address [address] [place] [address] Phone Care Team Providers Name Role Phone Erendira Unavailable Unavailable MD Unavailable Unavailable Allergies No information. Encounters No information. Medications No information. Problems date description facility 20210806 Sprain of lateral collateral ligament [facility], [facility] [id number] Sprain of lateral collateral ligament [facility] knee [facility] skip 20210806 KNEE 3 VIEW [facility] skip 20210806 Contusion of scalp, initial encounter [facility] skip 20210806 Contusion of scalp [facility] skip 20210806 Contusion of face, scalp, and neck [facility] except eye(s[facility] skip Results No information. Vital Signs date measurement value source 20210806 weight_standard 223.8 lb 20210806 weight_metric 101.51 kg 20210806 temperature_standard 97.2 F 20210806 temperature_metric 36.22 C 20210806 respiration_rate 16 /min 20210806 height_standard 71 in 20210806 height_metric 180.34 cm 20210806 heart_rate 65 /min 20210806 BP_systolic 142 mm[Hg] 20210806 BP_diastolic 75 mm[Hg] 20210806 BMI 31.33 kg/m2 20210806 weight_standard 223.8 lb 20210806 weight_metric 101.51 kg 20210806 temperature_standard 97.2 F 20210806 temperature_metric 36.22 C 20210806 respiration_rate 16 /min 20210806 height_standard 71 in 20210806 height_metric 180.34 cm 20210806 heart_rate 65 /min 20210806 BP_systolic 142 mm[Hg] 20210806 BP_diastolic 75 mm[Hg] 20210806 BMI 31.33 kg/m2
--- NOTE | 2021-08-25 18:59 | CT Report ---
PROCEDURE: HEAD WO INDICATIONS: trauma TECHNIQUE: Noncontrast 4.5 mm thick angled axial sections acquired from the foramen magnum to the vertex. For r adiation dose reduction, the following was used: automated exposure control, adjustment of mA and/or kV according to patient size. COMPARISON: None. FINDINGS: Image quality: Excellent. CSF spaces: Basal cisterns are patent. No extra-axial fluid collections. Ventricles are normal in size and shape. Brain: No midline shift. No intracranial masses or hemorrhage. Olsen-white matter interface is norm al. Skull and face: Calvarium and visualized facial bones are intact, without suspicious lesions. Small right parietal scalp contusion and laceration. Sinuses: Visualized sinuses and mastoids are clear. IMPRESSION: No acute intracranial disease process. Reviewed by: Meghan Husain MD, PhD on 08/25/2021 6:58 PM PDT Approved by: Meghan Husain MD, PhD on 08/25/2021 6:58 PM PDT Station ID: [id number]
--- NOTE | 2021-08-25 19:09 | ED Physician Documentation ---
PD HPI HEAD INJURY - Stated complaint Stated Complaint: GLF/HEAD PX - Chief complaint Chief Complaint: Trauma Hd/Nk - History obtained from History obtained from: Patient, Family - History of Present Illness Mechanism of head injury: Fell Where head injury occurred: Home Timing - onset: Today Location of injury: Top Quality of pain: Pain Associated symptoms: No: LOC, AMS, Amnesia, Nausea / vomiting, Neck pain, Paresthesias, Seizures, Ear drainage, Nasal drainage Symptoms improve with: Rest Symptoms worsen with: Palpation, Movement Contributing factors: Anticoagulated (on plavix) Similar symptoms before: Has not had sx before Recently seen: Not recently seen - Additional information Additional information: 71-year-old Vik Rodriguez has a history of prior CVA and he is on some Plavix. He was building a shed today in his home and he went up 4 feet on a ladder had a piece of plywood over the top of him and the piece of plywood somehow caused him to fall off of the ladder and the piece of plywood landed on his head. He was not knocked unconscious he does have a laceration to his scalp and had a significant amount of blood loss. He presents now with no nausea no vomiting no neck pain he does have some headache associated with this but denies any lightheadedness or dizziness or difficulty concentrating. Review of Systems Constitutional: denies: Fever Nose: denies: Congestion Throat: denies: Sore throat Respiratory: denies: Cough GI: denies: Nausea, Vomiting, Diarrhea Skin: reports: Laceration (s). denies: Rash Musculoskeletal: denies: Neck pain, Back pain, Extremity pain PD PAST MEDICAL HISTORY - Past Medical History Past Medical History: Yes Cardiovascular: Hypertension, High cholesterol Respiratory: Sleep apnea, CPAP use, Other Neuro: CVA Endocrine/Autoimmune: None GI: GERD, Colon polyps : Retention HEENT: None Psych: None Musculoskeletal: Osteoarthritis Derm: Other - Past Surgical History Past Surgical History: Yes General: Cholecystectomy, Appendectomy, Colonoscopy, Other HEENT: Tonsil/Adenoidectomy - Present Medications Home Medications: Ambulatory Orders Medication Instructions Recorded Confirmed Clopidogrel [Plavix] 75 mg PO DAILY 07/23/13 08/25/21 lisinopriL [Zestril] 40 mg PO DAILY 07/23/13 08/25/21 Ascorbic Acid [Vitamin C] 1,000 mg PO DAILY 07/26/14 08/25/21 Cholecalciferol (Vitamin D3) 2,000 unit PO DAILY 07/26/14 08/25/21 [Vitamin D] hydroCHLOROthiazide 25 mg PO DAILY 04/14/16 08/25/21 [Hydrochlorothiazide] amLODIPine [Norvasc] 5 mg PO DAILY 06/04/20 08/25/21 Famotidine 40 mg PO DAILY 08/25/21 08/25/21 Rosuvastatin Calcium [Crestor] 10 mg PO HS 08/25/21 08/25/21 - Allergies Allergies/Adverse Reactions: Allergies Allergy/AdvReac Type Severity Reaction Status Date / Time codeine Allergy Severe vomiting Verified 08/25/21 18:07 morphine Allergy Severe anaphylaxis Verified 08/25/21 18:07 - Social History Does the pt smoke?: No Smoking Status: Former smoker Does the pt drink ETOH?: Yes ETOH Use: Beer Does the pt have substance abuse?: No - Immunizations Immunizations are current?: Yes - POLST Patient has POLST: No POLST Status: Full Code PD ED PE NORMAL - Vitals Vital signs reviewed: Yes (Hypertensive mild) - General General: Alert and oriented X 3, No acute distress, Well developed/nourished - HEENT HEENT: PERRL, EOMI, Other (There is a 4 cm laceration to the vertex of the scalp with some contused tissue that is swollen. 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, No motor deficit, No sensory deficit, Normal speech Eye Opening: Spontaneous Motor: Obeys Commands Verbal: Oriented GCS Score: 15 - Psych Psych: Normal mood, Normal affect Results - Vitals Vitals: Vital Signs - 24 hr 08/25/21 18:08 Temperature 36.5 C Heart Rate 86 Respiratory 16 Rate Blood Pressure 140/81 H O2 Saturation 98 Oxygen O2 Source Room air - Rads (name of study) CT head Radiology: Prelim report reviewed (Impression: No acute intracranial disease process.), EMP read indepedently, See rad report Procedures - Laceration (location) Scalp Length in cm: 4 Wound type: Linear, Into subcut fat, Clean, Other (Contused and swollen tissue) Neurovascular status: Sensory intact, Motor intact, Vascular intact Anesthesia: Lidocaine 1% Wound preparation: Hibiclens, Irrigated copiously NS, Wound explored, To the base Skin layer closure: [place] (5) Other: Patient tolerated well, No complications, Neurovascular intact, Dressing applied, Tetanus UTD (2017) PD MEDICAL DECISION MAKING - ED course Complexity details: reviewed results, re-evaluated patient, considered differential, d/w patient, d/w family ED course: 71-year-old male with a laceration to his scalp after a piece of plywood fell on his head has no evidence of intracranial hemorrhage on CT scanning of the head the wound was cleansed and anesthetized and closed with bhargav. I have asked patient to follow-up with his primary back here or with the urgent care for staple removal in 10 days Departure - Departure Disposition: 01 Home, Self Care Clinical Impression: Concussion Qualifiers: Encounter type: initial encounter Loss of consciousness presence/duration: without LOC Qualified Code(s): S06.0X0A - Concussion without loss of consciousness, initial encounter Condition: Stable Instructions: ED Concussion, ED Laceration Scalp Stitch Or Stap Follow-Up: ISIS OSMAN MD [Primary Care Provider] - Comments: Vik today it looks like you have a burst laceration to your scalp and we have placed bhargav in it for repair the bhargav will need to be removed in about 10 days. You can follow-up here or you can follow-up with your primary care doctor or the urgent care. Our expectation is complete recovery.
[2021-08-25 19:29] VITALS: BP 142/86
== END 2021-08-25 19:22 | disposition home or self-care (01) ==
LOC: ED 18:03
DX: S01.01XA Laceration without foreign body of scalp, initial encounter (principal); S06.0X0A Concussion without loss of consciousness, initial encounter; W11.XXXA Fall on and from ladder, initial encounter; W20.8XXA Other cause of strike by thrown, projected or falling object, initial encounter; Y93.H3 Activity, building and construction; Y92.009 Unspecified place in unspecified non-institutional (private) residence as the place of occurrence of the external cause; Z79.01 Long term (current) use of anticoagulants; Z87.891 Personal history of nicotine dependence
CPT/HCPCS: 12002; 36415; 99284

== ENCOUNTER 2022-08-31 01:11 | Emergency (ER) | payer MEDICARE, OTHER ==
[2022-08-31] MEDS ORDERED: BACITRACIN ZINC OINT 1 PACKET TOP STA (01:37)
[2022-08-31] MEDS ORDERED: cephALEXin 250 MG CAPSULE PO STA (01:38)
[2022-08-31] MEDS ORDERED: TETANUS/DIPHTHERIA TOXOID 0.5 ML SYRINGE IM ONE (01:38)
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
[2022-08-31 01:45] VITALS: BP 155/85
== END 2022-08-31 02:09 | disposition home or self-care (01) ==
LOC: ED 01:11
DX: T22.011A Burn of unspecified degree of right forearm, initial encounter (principal); X12.XXXA Contact with other hot fluids, initial encounter; L03.113 Cellulitis of right upper limb; I10 Essential (primary) hypertension; Z87.891 Personal history of nicotine dependence; Z23 Encounter for immunization; Z71.85 Encounter for immunization safety counseling
CPT/HCPCS: 16020; 90471; 90714; 99283; A9270

== ENCOUNTER 2022-11-11 10:41 | Outpatient (CLI) | payer MEDICARE, OTHER ==
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
[2022-11-11 11:18] VITALS: BP 161/78
== END 2022-11-11 10:42 | disposition home or self-care (01) ==
LOC: SC 10:41
PROVIDERS: ATTEND Nurse Practitioner Family
DX: G47.33 Obstructive sleep apnea (adult) (pediatric) (principal); E66.9 Obesity, unspecified; Z68.30 Body mass index [BMI] 30.0-30.9, adult
CPT/HCPCS: 99213; G0463; 99212

== ENCOUNTER 2022-11-19 19:35 | Outpatient (CLI) | payer MEDICARE, OTHER | END 2022-11-19 23:59 | disposition critical access hospital (66) | LOC: EMS 19:35 | DX: R07.9 Chest pain, unspecified (principal); R26.81 Unsteadiness on feet | CPT/HCPCS: A0425; A0427 ==

== ENCOUNTER 2022-11-19 20:21 | Emergency (ER) | payer MEDICARE, OTHER ==
[2022-11-19 20:53] LABS: BASOPHILS # (AUTO) 0.1 10^3/uL (0.0-0.1); BASOPHILS % (AUTO) 0.8 %; EOSINOPHILS # (AUTO) 0.2 10^3/uL (0.0-0.7); EOSINOPHILS % (AUTO) 2.7 %; HCT - HEMATOCRIT 36.9 % (42.0-52.0); HGB - HEMOGLOBIN 11.9 g/dL (14.0-18.0); LYMPHOCYTES # (AUTO) 2.1 10^3/uL (1.5-3.5); LYMPHOCYTES % (AUTO) 33.7 %; MEAN CORPUSCULAR HEMOGLOBIN 27.7 pg (27.0-31.0); MEAN CORPUSCULAR HGB CONC 32.2 g/dL (32.0-36.0); MEAN CORPUSCULAR VOLUME 85.8 fL (80.0-94.0); MEAN PLATELET VOLUME 9.7 fL (7.4-11.4); MONOCYTES # (AUTO) 0.6 10^3/uL (0.0-1.0); NEUTROPHILS # (AUTO) 3.3 10^3/uL (1.5-6.6); NEUTROPHILS % (AUTO) 52.5 %; PLT - PLATELET COUNT 255 10^3/uL (130-450); RED CELL DISTRIBUTION WIDTH 13.1 % (12.0-15.0); WHITE BLOOD COUNT 6.3 x10^3/uL (4.8-10.8)
[2022-11-19 21:00] LABS: PT - PROTHROMBIN TIME 10.8 secs (9.9-12.6)
[2022-11-19 21:08] LABS: PARTIAL THROMBOPLASTIN TIME 28.1 secs (24.9-33.3)
[2022-11-19 21:15] LABS: ALBUMIN 4.5 g/dL (3.2-5.5); ALBUMIN/GLOBULIN RATIO 1.8 (1.0-2.2); BILIRUBIN,TOTAL 0.4 mg/dL (0.2-1.0); CALCIUM 9.3 mg/dL (8.5-10.3); POTASSIUM 3.7 mmol/L (3.5-4.5)
[2022-11-19] MEDS ORDERED: MAG HYDROX/AL HYDROX/SIMETH 30 ML UDC PO STA (21:18)
[2022-11-19] MEDS ORDERED: LIDOCAINE VISCOUS 2% 15 ML ORAL SYRINGE MM STA (21:19)
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
--- NOTE | 2022-11-19 21:36 | ED Physician Documentation ---
PD HPI CHEST PAIN - Stated complaint Stated Complaint: CP - Chief complaint Chief Complaint: Cardiac - History obtained from History obtained from: Patient - Additional information Additional information: 72yoM with PMH CVA (no residual deficit) presents for midepigastric stabbing/burning that started approximately 2 hrs prior to arrival. Patient states he has had these pains intermittently for several months, but it was worse tonight. Cannot identify what makes it better or worse at home. Nitro x2 by EMS made pain worse. Patient took own ASA prior to EMS arrival. Review of Systems Constitutional: denies: Fever, Chills Ears: denies: Loss of hearing, Ear pain Cardiac: reports: Chest pain / pressure. denies: Palpitations, Calf pain Respiratory: denies: Dyspnea, Cough, Wheezing GI: denies: Abdominal Pain, Nausea, Vomiting, Constipation, Diarrhea, Hemat emesis Musculoskeletal: denies: Neck pain, Back pain Neurologic: denies: Generalized weakness, Syncope PD PAST MEDICAL HISTORY - Past Medical History Cardiovascular: Hypertension, High cholesterol Respiratory: Sleep apnea, CPAP use, Other Neuro: CVA Endocrine/Autoimmune: None GI: GERD, Colon polyps : Retention HEENT: None Psych: None Musculoskeletal: Osteoarthritis Derm: Other - Past Surgical History Past Surgical History: Yes General: Cholecystectomy, Appendectomy, Colonoscopy, Other HEENT: Tonsil/Adenoidectomy - Present Medications Home Medications: Ambulatory Orders Medication Instructions Recorded Confirmed Clopidogrel [Plavix] 75 mg PO DAILY 07/23/13 08/25/21 lisinopriL [Zestril] 40 mg PO DAILY 07/23/13 08/25/21 Ascorbic Acid [Vitamin C] 1,000 mg PO DAILY 07/26/14 08/25/21 Cholecalciferol (Vitamin D3) 2,000 unit PO DAILY 07/26/14 08/25/21 [Vitamin D] hydroCHLOROthiazide 25 mg PO DAILY 04/14/16 08/25/21 [Hydrochlorothiazide] amLODIPine [Norvasc] 5 mg PO DAILY 06/04/20 08/25/21 Famotidine 40 mg PO DAILY 08/25/21 08/25/21 Rosuvastatin Calcium [Crestor] 10 mg PO HS 08/25/21 08/25/21 Bacitracin Zinc Oint 1 applic TOP BID 7 Days #1 each 08/31/22 cephALEXin [Keflex] 500 mg PO Q6H #28 cap 08/31/22 - Allergies Allergies/Adverse Reactions: Allergies Allergy/AdvReac Type Severity Reaction Status Date / Time codeine Allergy Severe vomiting Verified 11/19/22 20:35 morphine Allergy Severe anaphylaxis Verified 11/19/22 20:35 - Social History Does the pt smoke?: No Smoking Status: Former smoker Does the pt drink ETOH?: Yes Does the pt have substance abuse?: No - Immunizations Immunizations are current?: Yes - POLST Patient has POLST: No POLST Status: Full Code PD ED PE NORMAL - Vitals Vital signs reviewed: Yes - General General: Alert and oriented X 3, No acute distress, Well developed/nourished - HEENT HEENT: Atraumatic - Neck Neck: Supple, no meningeal sign - Cardiac Cardiac: No murmur, Strong equal pulses, Other (bradycardia) - Respiratory Respiratory: No respiratory distress, Clear bilaterally - Abdomen Abdomen: Soft, Non tender, Non distended - Derm Derm: Normal color, Warm and dry, No rash - Extremities Extremities: No deformity, No tenderness to palpate, Normal ROM s pain, No edema - Neuro Neuro: Alert and oriented X 3, copy director 2-12 intact, No motor deficit, Normal speech - Psych Psych: Normal mood, Normal affect Results - Vitals Vitals: Vital Signs - 24 hr 11/19/22 11/19/22 11/19/22 20:22 21:27 21:30 Temperature 36 C L Heart Rate 51 L 46 L 45 L Respiratory 16 14 16 Rate Blood Pressure 171/78 H 118/71 138/72 H O2 Saturation 98 98 97 11/19/22 11/19/22 11/19/22 22:00 22:30 23:00 Temperature Heart Rate 43 L 46 L 47 L Respiratory 16 13 16 Rate Blood Pressure 135/63 H 128/66 134/70 H O2 Saturation 96 99 96 Oxygen O2 Source Room air - EKG (time done) 2027 EKG releavant findings:: EKG personally interpreted by author of this note. Relevant findings are: Rate: Rate (enter#) (48), Geronimo Rhythm: Sinus bradycardia Lagrange: Normal Intervals: Normal [place] QRS: Normal Ischemia: Normal ST segments - Labs Labs: Laboratory Tests 11/19/22 11/19/22 11/19/22 20:26 20:26 20:26 WBC 6.3 RBC 4.30 L Hgb 11.9 L Hct 36.9 L MCV 85.8 MCH 27.7 MCHC 32.2 RDW 13.1 Plt Count 255 MPV 9.7 Neut # (Auto) 3.3 Lymph # (Auto) 2.1 Newton # (Auto) 0.6 Eos # (Auto) 0.2 Baso # (Auto) 0.1 Absolute Nucleated RBC 0.00 Nucleated RBC % 0.0 PT 10.8 INR 1.0 APTT 28.1 Sodium 140 Potassium 3.7 Chloride 107 Carbon Dioxide 27 Anion Gap 6.0 BUN 15 Creatinine 1.0 Estimated GFR (MDRD) 73 L Glucose 94 Calcium 9.3 Total Bilirubin 0.4 AST 17 ALT 19 Alkaline Phosphatase 72 Troponin I High Sens Total Protein 7.0 Albumin 4.5 Globulin 2.5 Albumin/Globulin Ratio 1.8 Lipase 20 11/19/22 11/19/22 20:26 22:32 WBC RBC Hgb Hct MCV MCH MCHC RDW Plt Count MPV Neut # (Auto) Lymph # (Auto) Newton # (Auto) Eos # (Auto) Baso # (Auto) Absolute Nucleated RBC Nucleated RBC % PT INR APTT Sodium Potassium Chloride Carbon Dioxide Anion Gap BUN Creatinine Estimated GFR (MDRD) Glucose Calcium Total Bilirubin AST ALT Alkaline Phosphatase Troponin I High Sens 4.9 4.7 Total Protein Albumin Globulin Albumin/Globulin Ratio Lipase PD Medical Decision Making - ED course Complexity details: reviewed results, re-evaluated patient, considered differential, d/w patient ED course: Patient presenting for chest pain/burning, however patient points to his midepigastric region as location of most pain. Absolutely no reproducible tenderness to palpation. EKG sinus bradycardia without ischemic findings. Patient resting comfortably. Pain improved with GI cocktail. Troponin x2 negative. Patient to be discharged home with family. DC in stable condition Departure - Departure Disposition: Home, Self Care Clinical Impression: Chest pain Qualifiers: Chest pain type: unspecified Qualified Code(s): R07.9 - Chest pain, unspecified Condition: Stable Instructions: ED Chest Pain Atypical Unkn Cause Comments: Your EKG, chest x-ray, and heart enzymes were normal today. I do not know the cause of your chest pain, however I do highly recommend that you follow-up with soon as possible with your primary care physician to be referred to a heart doctor. In the meantime since you did get some relief of your pain from antacids I recommend twice daily Pepcid for 2 weeks, which can be found [id number]. Forms: PCP List Discharge Date/Time: 11/19/22 23:27
--- NOTE | 2022-11-19 22:41 | XRAY Report ---
PROCEDURE: Chest 1 View X-Ray INDICATIONS: CP TECHNIQUE: One view of the chest was acquired. COMPARISON: 04/15/2016. FINDINGS: Surgical changes and devices: None. Lungs and pleura: No pleural effusions or pneumothorax. Lungs are clear. Mediastinum: Mediastinal contours appear normal. Heart size is normal. Bones and chest wall: No suspicious bony lesions. Overlying soft tissues appear unremarkable. IMPRESSION: No acute cardiopulmonary disease. Reviewed by: Shawn Barrett MD on 11/19/2022 10:39 PM PDT Approved by: Shawn Barrett MD on 11/19/2022 10:39 PM PDT Station ID: [id number]
[2022-11-19 23:29] VITALS: BP 134/70; O2SAT 96
== END 2022-11-19 23:27 | disposition home or self-care (01) ==
LOC: EDUNIT# → ED 20:21
DX: R07.9 Chest pain, unspecified (principal); I10 Essential (primary) hypertension; Z87.891 Personal history of nicotine dependence
CPT/HCPCS: 36415; 71045; 80053; 83690; 84484; 85025; 85610; 85730; 93005; 99283; 99284; A9270

== ENCOUNTER 2023-01-18 14:07 | Outpatient (CLI) | payer MEDICARE, OTHER ==
[2023-01-18 20:11] LABS: BASOPHILS % (AUTO) 0.5 %; EOSINOPHILS # (AUTO) 0.2 10^3/uL (0.0-0.7); HGB - HEMOGLOBIN 12.4 g/dL (14.0-18.0); LYMPHOCYTES # (AUTO) 1.8 10^3/uL (1.5-3.5); LYMPHOCYTES % (AUTO) 23.9 %; MEAN PLATELET VOLUME 10.3 fL (7.4-11.4); MONOCYTES # (AUTO) 0.5 10^3/uL (0.0-1.0); MONOCYTES % (AUTO) 6.5 %; NEUTROPHILS % (AUTO) 66.8 %; PLT - PLATELET COUNT 280 10^3/uL (130-450); RED CELL DISTRIBUTION WIDTH 14.8 % (12.0-15.0); WHITE BLOOD COUNT 7.5 x10^3/uL (4.8-10.8)
[2023-01-18 20:19] LABS: INR 1.1 (0.8-1.2); PT - PROTHROMBIN TIME 11.5 secs (9.9-12.6)
[2023-01-18 20:25] LABS: CALCIUM 9.6 mg/dL (8.5-10.3)
== END 2023-01-18 14:08 | disposition home or self-care (01) ==
LOC: LAB.S 14:07
PROVIDERS: ATTEND Internal Medicine Cardiovascular Disease
DX: I10 Essential (primary) hypertension (principal); I20.0 Unstable angina; E78.2 Mixed hyperlipidemia; R06.09 Other forms of dyspnea
CPT/HCPCS: 36415; 80048; 85025; 85610

== ENCOUNTER 2023-08-06 08:00 | Outpatient (CLI) | payer MEDICARE, OTHER ==
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
== END 2023-08-06 23:59 | disposition home or self-care (01) ==
LOC: DI.S 08:00
PROVIDERS: ATTEND Emergency Medicine
DX: S22.32XA Fracture of one rib, left side, initial encounter for closed fracture (principal)

== ENCOUNTER 2023-10-08 08:00 | Outpatient (CLI) | payer MEDICARE, OTHER | END 2023-10-08 23:59 | disposition home or self-care (01) | LOC: LAB 08:00 | PROVIDERS: ATTEND Emergency Medicine | DX: L72.3 Sebaceous cyst (principal) | CPT/HCPCS: 87070; 87205 ==

== ENCOUNTER 2023-11-16 10:06 | Outpatient (CLI) | payer MEDICARE, OTHER ==
--- NOTE | 2023-11-16 10:32 | Sleep Patient Instructions ---
Sleep Center Visit Summary - Patient Visit Information Reason for Visit: Annual follow-up for CPAP therapy - Patient Instructions Additional Instructions: You will continue with CPAP therapy with pressure changed to 11-13 cmH2O. A supply prescription will be updated with your DME. We encourage you to continue to try to lose weight. Please follow up with the sleep care office in 1 year. - Clinic Information Contact: [facility] [address] [place] [address] [email or web address] T: [phone]
--- NOTE | 2023-11-16 10:36 | SLEEP CARE CONSULTATION ---
Information from patient questionnaire entered by Celine Corcoran. I have reviewed and concur with the information entered by Celine Corcoran. This document represents the service I personally performed and the decisions made by me, Jaycee Chambers ARNP. History of Present Illness Service Date and Time: 11/16/2023 1006 Previous diagnosis: Very Severe, Obstructive Sleep Apnea-Hypopnea Syndrome AHI: 72.8 (2011) Reason for follow up: annual Equipment type: CPAP (Dreamstation 2) Equipment obtained from: [employer] (getting supplies as needed) Mask style: Full face Backup mask available: Yes (old mask) Last cushion change: last week Prior sleep studies: Yes Year and Where: 2011 [facility] Type of Sleep Study: Polysomnography HPI additional information: DIONICIO BARRY was diagnosed to have very severe, AHI 72.8, obstructive sleep apnea-hypopnea syndrome and returned today for CPAP therapy annual follow-up. Sleep Study - Results Type of Sleep Study: Polysomnography Prior sleep studies: Yes Year and Where: 2011 [facility] CPAP Compliance Data - Data Reviewed with Patient Average duration of nightly device use: 7 HRS 20 MINS 21 SECS Compliance rate %: 99.7 (11/11/22-11/10/23; 365/365 days used) Current pressure setting (cmH2O): 12-14 (avg 13.5, max 14) Average residual AHI: 7.0 Central apnea: 3.5 Obstructive apnea: 1.7 Hypopnea: 1.8 Average large leak: 7 mins 20 secs Subjective Missed days of use due to: reports: other (power outage) Patient concerns: denies: aerophagia, mask discomfort, air blowing in eyes, mask leak noise, condensation in mask/hose, nasal congestion, dry mouth, nose, throat, epistaxis Observed to snore while using device: No Current pressure setting perceived as: comfortable On therapy, patient: reports: sleeping better, awakening more refreshed, being more awake and alert during the day, more rested overall. denies: drowsiness while driving Initial Cummings Sleepiness Scale score: 14 (in 2011) Current Cummings Sleepiness Scale score: 0 (11/16/23) Allergies and Home Medications Known drug allergies: Yes (as listed) Drug allergies reviewed: Yes Home medication list reviewed: Yes (no changes) Allergy and home medication list: Allergies codeine Allergy (Severe, Verified 11/16/23 10:06) vomiting morphine Allergy (Severe, Verified 11/16/23 10:06) anaphylaxis Review of Systems Review of systems same as previous: Yes (NO CHANGE) Physical Exam Vital signs obtained and entered by: CELINE Braun MA Blood Pressure: 179/82 (RIGHT ARM) Cuff size: long Heart Rate: 49 O2 Saturation: 98 Height: 5 ft 11 in Weight: 221 lb 3.2 oz Weight change since last visit: 2 lb gain Body Mass Index: 30.8 BMI Classification: Obese Impression and Plan 1. Obstructive Sleep Apnea-Hypopnea Syndrome, very severe, with good treatment compliance and fair apnea control with elevated residual AHI. On CPAP therapy, the patient has better sleep quality and is more rested overall. Patient states when he puts the mask on the pressure feels too low and he feels a little short of breath. He used to have it just started his pressures and thinks he may have changed his along the line and its now wrapping from 4 cm H2O. He asked to have the ramped starting pressure turned off and we will do this. His residual AHI is minimally elevated with pressure adjusted at last visit. He appeared to have better control at previous pressures so we will adjust pressure. The patients pressure will be changed to autoCPAP 11-13 cmH20 For elevation of residual AHI. Patient advised to contact me if pressure change is uncomfortable so that it can be adjusted. Goals for apnea control discussed. Patient's apnea severity and rationale for treatment to reduce apnea, improve sleep quality and reduce cardiovascular and cerebrovascular events was reviewed. I also reviewed the benefit of consistent device use of CPAP for hypertension, cerebrovascular disease, gastric reflux. 2. Obesity, unspecified. Currently patients BMI is 30.8. He has gained weight but is thinking about how to increase activity again to try to lose weight. Obesity increases the risk of apnea, CPAP pressure requirements and overall health risks especially cardiovascular and diabetes. Thus patient is advised to continue to try to lose weight. * Change auto CPAP pressure to 11-13 cmH2O * Notify me if snoring with mask or feeling that the pressure is too much or too little * Attempt to lose weight * Call this office if any problems using CPAP * Return for follow up in 12 months, or sooner if concerns arise Adjust device pressure to (cmH2O): 11-13 Counseling Topics: Spare mask, Weight loss health impact Prescriptions: Device supplies Follow up with Sleep Care in: 1 year Visit Type: In Office Time Spent with Patient (minutes): 21 Provider Statement: I spent 100% of the Face to Face Visit with the patient with greater than 50% spent counseling the patient and coordination of care.
[2023-11-16 10:48] VITALS: BP 179/82; O2SAT 98
== END 2023-11-16 10:07 | disposition home or self-care (01) ==
LOC: SC 10:06
PROVIDERS: ATTEND Nurse Practitioner Family
DX: G47.33 Obstructive sleep apnea (adult) (pediatric) (principal); E66.9 Obesity, unspecified; Z68.30 Body mass index [BMI] 30.0-30.9, adult
CPT/HCPCS: 99213; G0463; 99212